=== PATIENT | male | born 1995 | race Caucasian/White ===

== ENCOUNTER 2018-12-19 06:13 | Emergency (ER) | payer MEDICAID ==
[~2018-12-19] VITALS: Ht 175.3 cm; Wt 95.3 kg
--- NOTE | 2018-12-19 06:13 | NUR ---
Patient to ER CHAIR to gown for evaluation. Side rails up.
[2018-12-19 06:15] VITALS: BP_SYST 122
--- NOTE | 2018-12-19 06:48 | NUR ---
ER at bedside examining patient.
[2018-12-19 06:59] VITALS: BP_SYST 122
--- NOTE | 2018-12-19 07:02 | NUR ---
Patient given written and verbal discharge instructions and verbalizes understanding. ER MD discussed with patient the results and treatment provided. Patient in stable condition. ID arm band removed. Patient educated on pain management and to follow up with PMD. Pain Scale 0. Opportunity for questions provided and answered. Medication side effect fact sheet provided.
== END 2018-12-19 06:59 | disposition home or self-care (01) ==
LOC: SED 06:13
DX: Z02.89 Encounter for other administrative examinations (principal)
CPT/HCPCS: 99283